=== PATIENT | male | born 1965 | race Caucasian/White ===

== ENCOUNTER 2020-04-22 12:05 | Emergency (ER) | payer BC ==
[2020-04-22] MEDS ORDERED: Lidocaine 1% with EPINEPHrine 1:100,000 50 ML MDV INFILT ONE (12:42)
[2020-04-22] MEDS ORDERED: Bacitracin Oint 1 GM U/D Packet TOP ONE (12:42)
--- NOTE | 2020-04-22 13:18 | EDM.PDOC ---
ED HPI GENERAL MEDICAL PROBLEM - General Chief Complaint: Laceration Stated Complaint: CUT ON RIGHT LEG Time Seen by Provider: 04/22/20 12:31 Source of Information: Reports: Patient History Limitations: Reports: No Limitations - History of Present Illness INITIAL COMMENTS - FREE TEXT/NARRATIVE: 54 yo male presents with laceration to right leg. he was cleaning camper shower and lacerated leg on door. up to date on tetanus. generally healthy - Related Data Allergies Allergy/AdvReac Type Severity Reaction Status Date / Time No Known Allergies Allergy Verified 04/22/20 12:33 Past Medical History Respiratory History: Reports: Sleep Apnea Other Respiratory History: cpap - Infectious Disease History Infectious Disease History: Reports: Chicken Pox Social & Family History - Tobacco Use Smoking Status *Q: Never Smoker Second Hand Smoke Exposure: No - Recreational Drug Use Recreational Drug Use: No ED ROS GENERAL - Review of Systems Review Of Systems: See Below Constitutional: Denies: Fever, Chills, Fatigue Respiratory: Denies: Shortness of Breath, Cough Cardiovascular: Denies: Chest Pain ED EXAM, SKIN/RASH Exam: See Below Text/Narrative:: exam limited to leg Respiratory/Chest: No Respiratory Distress Extremities: Other (5 cm laceration to posterior mid calf) ED SKIN PROCEDURES - Laceration/Wound Repair Right Posterior Leg Appearance: Superficial, Subcutaneous Distal NVT: Neuro & Vascular Intact, No Tendon Injury Local Anesthesia - Lidocaine (Xylocaine): 1% with EPI Local Anesthetic Volume: Other (10) Saline Irrigation (cc's): 250 Exploration/Debridement/Repair: Wound Explored, In a Bloodless Field, Explored to Base, Minimal Debridement, No Foreign Material Found Closed with: Sutures Lac/Wound length In cm: 5 Suture Size: 4-0 # of Sutures: 14 Suture Type: Nylon, Interrupted, Simple Sterile Dressing Applied: Nurse Tetanus Status Addressed: Yes Complications: No Course - Vital Signs Last Recorded V/S: Last Vital Signs Temp 36.2 C 04/22/20 12:38 Pulse 99 04/22/20 12:38 Resp 16 04/22/20 12:38 BP 164/85 H 04/22/20 12:38 Pulse Ox 97 04/22/20 12:38 - Orders/Labs/Meds Meds: Medications Discontinued Medications Generic Name Dose Route Start Last Admin Trade Name Freq PRN Reason Stop Dose Admin Bacitracin 1 dose 04/22/20 12:42 04/22/20 12:46 Bacitracin Oint 1 Gm TOP 04/22/20 12:43 1 dose ONETIME ONE Administration Lidocaine/Epinephrine 5 ml 04/22/20 12:42 04/22/20 12:47 Xylocaine 1% With Epinephrine 1:100,000 INFILT 04/22/20 12:43 5 ml ONETIME ONE Administration Departure - Departure Time of Disposition: 13:16 Disposition: Home, Self-Care 01 Condition: Good Clinical Impression: Laceration of leg Qualifiers: Encounter type: initial encounter Laterality: right Qualified Code(s): S81.811A - Laceration without foreign body, right lower leg, initial encounter - Discharge Information *PRESCRIPTION DRUG MONITORING PROGRAM REVIEWED*: Not Applicable *COPY OF PRESCRIPTION DRUG MONITORING REPORT IN PATIENT JOSE: Not Applicable Instructions: Sutured Wound Care, [id number] Referrals: PCP,None [Primary Care Provider] - Forms: ED Department Discharge Additional Instructions: sutures removed in 7-8 days wash with warm soapy water and pat dry keep clean and covered observe for signs of infection: fire engine red, purulent drainage, increase in pain ice as much as possible today for pain control and swelling Sepsis Event Note (ED) - Evaluation Sepsis Screening Result: No Definite Risk - Focused Exam Vital Signs: Vital Signs Temp Pulse Resp BP Pulse Ox 04/22/20 12:38 36.2 C 99 16 164/85 H 97
== END 2020-04-22 13:25 | disposition home or self-care (01) ==
LOC: JP.ED 12:05
DX: S81.811A Laceration without foreign body, right lower leg, initial encounter (principal); W26.8XXA Contact with other sharp object(s), not elsewhere classified, initial encounter; Y93.89 Activity, other specified
CPT/HCPCS: 12002; 99282-25